=== PATIENT | female | born 1985 | race American Indian/Alaskan Native ===

== ENCOUNTER 2017-03-31 16:04 | Inpatient (IN) | payer OTHER ==
[2017-03-31] MEDS ORDERED: LACTATED RINGERS 1,000 ML ONE (16:27)
[2017-03-31 17:52] LABS: Bilirubin,Urine NEG (Negative); Blood,Urine MOD (Negative); Ketones,Urine 80 mg/dL (Negative); Leukocyte Esterase,Urine NEG (Negative); Mucus,Urine 3+ /HPF; Nitrite,Urine NEG (Negative); Urobilinogen,Urine < 2.0 mg/dL (<2.0)
[2017-03-31] MEDS ORDERED: LACTATED RINGERS 500 ML IV ONE ×2 (18:00→19:30)
[2017-03-31] MEDS ORDERED: BRETHINE SUB-Q ONE (18:24)
[2017-03-31] MEDS ORDERED: MAGNESIUM SULFATE 4GM/100ML 4 GM/100 ML BAG IV ONE (19:30)
[2017-03-31] MEDS ORDERED: STADOL IV PRN (19:39)
[2017-03-31] MEDS: MAGNESIUM SULFATE 40GM/1000ML 40 GM/1,000 ML BAG IV SCH (20:21)
--- NOTE | 2017-03-31 20:24 | Ultrasound Report ---
FINAL REPORT PROCEDURE: US OB \T\gt; = 14 WEEKS FETUS TECHNIQUE: Real-time limited sonographic examination was performed for evaluation of size, position, heartbeat, fluid volume for each fetus with image documentation (1 or more fetuses). CPT 70599 HISTORY: labor; COMPARISON: No prior studies are available for comparison. FINDINGS: Cervix is not diagnostically visualized via transabdominal or translabial technique. FETUS IUP: Single living intrauterine . Position: Breech. Placental position: Posterior and grade 0, without previa . Amniotic fluid volume: Not measured but subjectively within normal limits Heart rate and rhythm: 143 BPM, Regular . anatomic survey: Fluid containing stomach, four-chamber view of the heart, brain, three-vessel cord, limited views of the spine, and kidneys are visualized and appear unremarkable. MEASUREMENTS BPD: 5.3 centimeters, 22 weeks 1 day. HC: 22.6 centimeters, 24 weeks 4 days. AC: 19.3 centimeters, 24 weeks 0 days. FL: 4.4 centimeters, 24 weeks 2 days. Mean Gestational Age (composite criteria): 23 weeks 5 days. Ratio biometry: Low cephalic index, 70.3. Estimated Weight: 657 grams. Estimated Due Date (earliest scan): 07/23/2017. Rounded uterine fibroids are seen posteriorly, which measure up to 7.6 centimeters IMPRESSION: 1. Single living intrauterine gestation at approximately 23 weeks 5 days. 2. EDC by US 07/23/2017. Other findings as above.
[2017-03-31] MEDS: CELESTONE SOLUSPAN IM SCH (20:38)
[2017-03-31 21:00] LABS: Basophils % (Auto) 0.1 % (0.0-1.8); Hematocrit 37.9 % (30.3-42.9); Hemoglobin 12.3 gm/dl (10.1-14.3); Mean Corpuscular HGB Conc 33 % (30-34); Platelet Count 223 K/mm3 (140-440); Red Blood Count 5.45 M/mm3 (3.65-5.03); Red Cell Distribution Width 14.5 % (13.2-15.2); White Blood Count 10.8 K/mm3 (4.5-11.0)
[2017-03-31 21:04] LABS: Mean Corpuscular Hemoglobin 23 pg (28-32); Mean Corpuscular Volume 70 fl (79-97)
--- NOTE | 2017-03-31 23:31 | History and Physical Report ---
History of Present Illness Date of examination: 03/31/17 Date of admission: 03/31/17 21:31 Chief complaint: I'm bleeding History of present illness: patient is a 32 year old who presents at 24.5 weeks gestation with c/o bleeding and contractions. An ultrasound was ordered which could not identify any cervical length. Vaginal exam revealed her to be 1 cm dilated with 90% effacement. Past History Past Medical History: no pertinent history Past Surgical History: no surgical history Social history: - Obstetrical History Expected Date of Delivery: 07/16/17 Actual Gestation: 24 Week(s) 5 Day(s) : 2 Number of Living Children: 0 Medications and Allergies Allergies Allergy/AdvReac Type Severity Reaction Status Date / Time No Known Allergies Allergy Unverified 03/31/17 17:07 Active Meds: Active Medications Betamethasone Acet/Betameth SodPhos (Celestone Soluspan) 12 mg IM Q24HR YAJAIRA Last Admin: 03/31/17 20:38 Dose: 12 mg Butorphanol Tartrate (Stadol) 1 mg IV Q2H PRN PRN Reason: Labor Pain Magnesium Sulfate (Magnesium Sulfate 40gm/1000ml) 40 gm in 1,000 mls @ 50 mls/ hr IV DIRECT YAJAIRA PRN Reason: 2 GM/HR Last Admin: 03/31/17 20:21 Dose: 2 gm/hr, 50 mls/hr Multivitamins/Iron/Calcium ( Vitamin) 1 each PO QDAY YAJAIRA Zolpidem Tartrate (Ambien) 5 mg PO QHS PRN PRN Reason: Sleep Review of Systems All systems: negative Gastrointestinal: abdominal pain Genitourinary: vaginal bleeding, contractions - Vital Signs Vital signs: Vital Signs Temp Pulse Resp BP 98.8 F 94 H 20 143/96 03/31/17 16:11 03/31/17 16:11 03/31/17 16:11 03/31/17 16:11 Temp Pulse Resp BP Pulse Ox 98.8 F 93 H 22 96/59 97 03/31/17 20:17 03/31/17 23:18 03/31/17 20:17 03/31/17 22:42 03/31/17 23:18 - Physical Exam Breasts: Cardiovascular: Regular rate, Normal S1, Normal S2 Lungs: Positive: Clear to auscultation, Normal air movement Abdomen: Positive: normal appearance, soft, normal bowel sounds. Negative: distention, tenderness Vulva: both: normal Vagina: Positive: normal moisture. Negative: discharge Cervix: Negative: lesion, discharge Uterus: Positive: normal size, normal contour Adnexa: both: normal Anus/Rectum: Positive: normal perianal skin, heme negative. Negative: rectal mass, hemorrhoids Extremities: Deep Tendon Reflex Grade: Normal +2 - Obstetrical FHR: auscultation normal Cervical Dilatation: 1 Cervical Effacement Percentage: 90 station: -1 Uterine Contraction Intensity: Moderate Results Result Diagrams: 03/31/17 20:28 Abnormal lab results 03/31/17 Range/Units 20:28 RBC 5.45 H (3.65-5.03) M/mm3 MCV 70 L (79-97) fl MCH 23 L (28-32) pg [place] % (Auto) 8.1 H (0.0-7.3) % [place] # 0.9 H (0.0-0.8) K/mm3 Seg Neutrophils % 73.9 H (40.0-70.0) % Seg Neutrophils # 8.0 H (1.8-7.7) K/mm3 All other labs normal. Assessment and Plan Patient here with advanced cervical change at 24.5 weeks. Will admit for labor protocol. Patient to receive steroids. Will start on magnesium for neuroprotection. Complete bedrest. Consult NICU. Expectant management.
[2017-04-01] MEDS: AMBIEN PO PRN (02:44)
[2017-04-01 08:37] LABS: HIVR-1/2 Ab Non React (Non React)
[2017-04-01 08:38] LABS: HIV-1 Antigen p24 Non React (Non React)
[2017-04-01] MEDS ORDERED: LACTATED RINGERS 1,000 ML ONE (12:52)
[2017-04-01] MEDS: LACTATED RINGERS 1,000 ML IV SCH (13:38)
[2017-04-01] MEDS: PRENATAL VITAMIN PO SCH (15:19)
[2017-04-01] MEDS: MAGNESIUM SULFATE 40GM/1000ML 40 GM/1,000 ML BAG IV SCH (16:02)
--- NOTE | 2017-04-01 16:19 | Progress Note ---
Assessment and Plan IUP at 24+ weeks here with advanced cervical change and labor. Patient is stable at this time. Continue current management and routine care. Subjective - Subjective Date of service: 04/01/17 Interval history: patient is a 32 year old who presents at 24.5 weeks gestation with c/o bleeding and contractions. An ultrasound was ordered which could not identify any cervical length. Vaginal exam revealed her to be 1 cm dilated with 90% effacement. Patient reports: new complaints Objective - Vital Signs Vital Signs: Vital Signs - 12hr 04/01/17 04/01/17 04/01/17 04:18 04:23 04:28 Temperature Pulse Rate 103 H 110 H 103 H Respiratory Rate Blood Pressure O2 Sat by Pulse 99 98 96 Oximetry 04/01/17 04/01/17 04/01/17 04:48 04:49 04:53 Temperature Pulse Rate 95 H 93 H 91 H Respiratory Rate Blood Pressure 103/68 O2 Sat by Pulse 99 100 Oximetry 04/01/17 04/01/17 04/01/17 04:55 04:58 05:03 Temperature 98.0 F Pulse Rate 87 94 H Respiratory 16 Rate Blood Pressure O2 Sat by Pulse 99 100 Oximetry 04/01/17 04/01/17 04/01/17 05:08 05:13 05:18 Temperature Pulse Rate 92 H 95 H 86 Respiratory Rate Blood Pressure O2 Sat by Pulse 99 99 98 Oximetry 04/01/17 04/01/17 04/01/17 05:23 05:28 05:33 Temperature Pulse Rate 88 87 86 Respiratory Rate Blood Pressure O2 Sat by Pulse 98 98 98 Oximetry 04/01/17 04/01/17 04/01/17 05:38 05:42 05:43 Temperature Pulse Rate 94 H 104 H 104 H Respiratory Rate Blood Pressure 116/85 O2 Sat by Pulse 98 59 L 99 Oximetry 04/01/17 04/01/17 04/01/17 06:20 06:25 06:30 Temperature Pulse Rate 85 88 85 Respiratory Rate Blood Pressure O2 Sat by Pulse 99 99 99 Oximetry 04/01/17 04/01/17 04/01/17 06:35 06:40 06:41 Temperature Pulse Rate 87 83 78 Respiratory Rate Blood Pressure 113/73 O2 Sat by Pulse 98 99 Oximetry 04/01/17 04/01/17 04/01/17 06:45 06:50 06:55 Temperature Pulse Rate 84 83 82 Respiratory Rate Blood Pressure O2 Sat by Pulse 98 98 98 Oximetry 04/01/17 04/01/17 04/01/17 07:00 07:05 07:10 Temperature Pulse Rate 83 84 83 Respiratory Rate Blood Pressure O2 Sat by Pulse 98 98 98 Oximetry 04/01/17 04/01/17 04/01/17 07:15 07:20 07:25 Temperature Pulse Rate 82 81 83 Respiratory Rate Blood Pressure O2 Sat by Pulse 99 98 98 Oximetry 04/01/17 04/01/17 04/01/17 07:30 07:33 07:35 Temperature Pulse Rate 80 84 82 Respiratory Rate Blood Pressure 109/74 O2 Sat by Pulse 99 98 Oximetry 04/01/17 04/01/17 04/01/17 07:40 07:45 07:50 Temperature Pulse Rate 82 84 82 Respiratory Rate Blood Pressure O2 Sat by Pulse 97 98 98 Oximetry 04/01/17 04/01/17 04/01/17 07:55 08:00 08:05 Temperature 98.1 F Pulse Rate 87 88 88 Respiratory 16 Rate Blood Pressure O2 Sat by Pulse 98 97 98 Oximetry 04/01/17 04/01/17 04/01/17 08:10 08:15 08:20 Temperature Pulse Rate 88 86 85 Respiratory Rate Blood Pressure O2 Sat by Pulse 99 99 99 Oximetry 04/01/17 04/01/17 04/01/17 08:25 08:30 08:33 Temperature Pulse Rate 86 88 85 Respiratory Rate Blood Pressure 89/56 O2 Sat by Pulse 99 99 Oximetry 04/01/17 04/01/17 04/01/17 08:35 08:40 08:45 Temperature Pulse Rate 82 86 80 Respiratory Rate Blood Pressure O2 Sat by Pulse 99 98 99 Oximetry 04/01/17 04/01/17 04/01/17 08:50 08:55 09:00 Temperature Pulse Rate 80 81 78 Respiratory Rate Blood Pressure O2 Sat by Pulse 99 99 99 Oximetry 04/01/17 04/01/17 04/01/17 09:05 09:10 09:15 Temperature Pulse Rate 78 79 81 Respiratory Rate Blood Pressure O2 Sat by Pulse 99 98 99 Oximetry 04/01/17 04/01/17 04/01/17 09:18 09:20 09:25 Temperature Pulse Rate 85 85 84 Respiratory Rate Blood Pressure 100/62 O2 Sat by Pulse 99 99 Oximetry 04/01/17 04/01/17 04/01/17 09:30 09:33 09:35 Temperature Pulse Rate 85 83 80 Respiratory Rate Blood Pressure 99/60 O2 Sat by Pulse 99 99 Oximetry 04/01/17 04/01/17 04/01/17 09:40 09:45 09:50 Temperature Pulse Rate 79 79 84 Respiratory Rate Blood Pressure O2 Sat by Pulse 99 99 99 Oximetry 04/01/17 04/01/17 04/01/17 09:55 10:00 10:02 Temperature Pulse Rate 92 H 86 86 Respiratory Rate Blood Pressure 89/54 O2 Sat by Pulse 99 99 Oximetry 04/01/17 04/01/17 04/01/17 10:05 10:10 10:15 Temperature Pulse Rate 89 89 92 H Respiratory Rate Blood Pressure O2 Sat by Pulse 100 100 99 Oximetry 04/01/17 04/01/17 04/01/17 10:20 10:25 10:30 Temperature Pulse Rate 103 H 100 H 96 H Respiratory Rate Blood Pressure O2 Sat by Pulse 99 99 100 Oximetry 04/01/17 04/01/17 04/01/17 10:35 10:40 10:45 Temperature Pulse Rate 96 H 101 H 102 H Respiratory Rate Blood Pressure O2 Sat by Pulse 98 97 98 Oximetry 04/01/17 04/01/17 04/01/17 10:50 10:55 11:00 Temperature Pulse Rate 114 H 110 H 110 H Respiratory Rate Blood Pressure O2 Sat by Pulse 97 98 98 Oximetry 04/01/17 04/01/17 04/01/17 11:02 11:05 11:10 Temperature Pulse Rate 93 H 94 H 94 H Respiratory Rate Blood Pressure 101/63 O2 Sat by Pulse 98 99 Oximetry 04/01/17 04/01/17 04/01/17 11:15 11:20 11:25 Temperature Pulse Rate 98 H 94 H 91 H Respiratory Rate Blood Pressure O2 Sat by Pulse 98 97 97 Oximetry 04/01/17 04/01/17 04/01/17 11:30 11:35 11:40 Temperature Pulse Rate 87 93 H 94 H Respiratory Rate Blood Pressure O2 Sat by Pulse 96 98 96 Oximetry 04/01/17 04/01/17 04/01/17 11:45 11:50 11:55 Temperature Pulse Rate 88 86 84 Respiratory Rate Blood Pressure O2 Sat by Pulse 97 96 96 Oximetry 05/13/17 05/13/17 05/13/17 12:00 12:04 12:05 Temperature 98.3 F Pulse Rate 93 H 93 H 94 H Respiratory 18 Rate Blood Pressure 107/67 O2 Sat by Pulse 98 100 Oximetry 04/01/17 04/01/17 04/01/17 12:10 12:15 12:20 Temperature Pulse Rate 100 H 98 H 97 H Respiratory Rate Blood Pressure O2 Sat by Pulse 98 98 98 Oximetry 04/01/17 04/01/17 04/01/17 12:25 12:30 12:35 Temperature Pulse Rate 98 H 102 H 96 H Respiratory Rate Blood Pressure O2 Sat by Pulse 98 99 99 Oximetry 04/01/17 04/01/17 04/01/17 12:40 12:45 12:50 Temperature Pulse Rate 96 H 104 H 93 H Respiratory Rate Blood Pressure O2 Sat by Pulse 99 99 97 Oximetry 04/01/17 04/01/17 04/01/17 12:55 13:00 13:02 Temperature Pulse Rate 89 89 88 Respiratory Rate Blood Pressure 92/58 O2 Sat by Pulse 97 96 Oximetry 04/01/17 04/01/17 04/01/17 13:05 13:10 13:15 Temperature Pulse Rate 95 H 88 89 Respiratory Rate Blood Pressure O2 Sat by Pulse 97 97 98 Oximetry 04/01/17 04/01/17 04/01/17 13:20 13:25 13:30 Temperature Pulse Rate 89 88 83 Respiratory Rate Blood Pressure O2 Sat by Pulse 98 98 97 Oximetry 04/01/17 04/01/17 04/01/17 13:35 13:40 13:45 Temperature Pulse Rate 94 H 91 H 92 H Respiratory Rate Blood Pressure O2 Sat by Pulse 98 98 97 Oximetry 04/01/17 04/01/17 04/01/17 13:50 13:55 14:00 Temperature Pulse Rate 88 87 85 Respiratory Rate Blood Pressure 93/60 O2 Sat by Pulse 97 97 96 Oximetry 04/01/17 04/01/17 04/01/17 14:03 14:05 14:10 Temperature Pulse Rate 86 84 89 Respiratory Rate Blood Pressure 104/74 O2 Sat by Pulse 100 100 Oximetry 04/01/17 04/01/17 04/01/17 14:15 14:20 14:25 Temperature Pulse Rate 87 91 H 88 Respiratory Rate Blood Pressure O2 Sat by Pulse 99 100 100 Oximetry 04/01/17 04/01/17 04/01/17 14:30 14:35 14:40 Temperature Pulse Rate 86 91 H 88 Respiratory Rate Blood Pressure O2 Sat by Pulse 100 100 100 Oximetry 04/01/17 04/01/17 04/01/17 14:45 14:50 14:55 Temperature Pulse Rate 87 85 85 Respiratory Rate Blood Pressure O2 Sat by Pulse 100 100 100 Oximetry 04/01/17 04/01/17 04/01/17 15:00 15:02 15:05 Temperature Pulse Rate 85 89 93 H Respiratory Rate Blood Pressure 101/69 O2 Sat by Pulse 100 100 Oximetry 04/01/17 04/01/17 04/01/17 15:50 15:55 16:00 Temperature Pulse Rate 91 H 98 H 95 H Respiratory Rate Blood Pressure O2 Sat by Pulse 100 99 100 Oximetry 04/01/17 04/01/17 04/01/17 16:01 16:05 16:10 Temperature Pulse Rate 90 91 H 99 H Respiratory Rate Blood Pressure 108/67 O2 Sat by Pulse 98 98 Oximetry - Exam Breasts: deferred Cardiovascular: Regular rate, Normal S1, Normal S2 Lungs: Clear to auscultation, Normal air movement Abdomen: Present: normal appearance, soft, normal bowel sounds Uterus: Present: normal FHR: auscultation normal Cervical Dilatation: 1 Cervical Effacement Percentage: 90 station: -2 Uterine Contraction Pattern: Absent Deep Tendon Reflex Grade: Normal +2 - Labs Labs: Abnormal Labs 03/31/17 20:28 RBC 5.45 H MCV 70 L MCH 23 L [place] % (Auto) 8.1 H [place] # 0.9 H Seg Neutrophils % 73.9 H Seg Neutrophils # 8.0 H Laboratory Results - last 24 hr 03/31/17 03/31/17 03/31/17 17:17 20:25 20:28 WBC 10.8 RBC 5.45 H Hgb 12.3 Hct 37.9 MCV 70 L MCH 23 L MCHC 33 RDW 14.5 Plt Count 223 Lymph % (Auto) 16.9 [place] % (Auto) 8.1 H Eos % (Auto) 1.0 Baso % (Auto) 0.1 Lymph # 1.8 [place] # 0.9 H Eos # 0.1 Baso # 0.0 Seg Neutrophils % 73.9 H Seg Neutrophils # 8.0 H Urine Color Yellow Urine Turbidity Clear Urine pH 5.0 Ur Specific [place] 1.027 Urine Protein 30 mg/dl Urine Glucose (UA) Neg Urine Ketones 80 Urine Blood Mod Urine Nitrite Neg Urine Bilirubin Neg Urine Urobilinogen < 2.0 Ur Leukocyte Esterase Neg Urine WBC (Auto) 1.0 Urine RBC (Auto) 2.0 U Epithel Cells (Auto) 2.0 Urine Mucus 3+ Hep Bs Antigen HIV 1&2 Antibody Rapid HIV P24 Antigen Rubella IgG Antibody Blood Type O POSITIVE Antibody Screen TNR TORSTEN Antibody Screen Negative 04/01/17 04/01/17 04/01/17 06:57 06:57 06:57 WBC RBC Hgb Hct MCV MCH MCHC RDW Plt Count Lymph % (Auto) [place] % (Auto) Eos % (Auto) Baso % (Auto) Lymph # [place] # Eos # Baso # Seg Neutrophils % Seg Neutrophils # Urine Color Urine Turbidity Urine pH Ur Specific [place] Urine Protein Urine Glucose (UA) Urine Ketones Urine Blood Urine Nitrite Urine Bilirubin Urine Urobilinogen Ur Leukocyte Esterase Urine WBC (Auto) Urine RBC (Auto) U Epithel Cells (Auto) Urine Mucus Hep Bs Antigen Non-reactive HIV 1&2 Antibody Rapid Non react HIV P24 Antigen Non react Rubella IgG Antibody Immune Blood Type Antibody Screen TORSTEN Antibody Screen
[2017-04-01] MEDS: CELESTONE SOLUSPAN IM SCH (20:56)
[2017-04-02] MEDS: LACTATED RINGERS 1,000 ML IV SCH (02:34)
[2017-04-02] MEDS: PRENATAL VITAMIN PO SCH (10:33)
--- NOTE | 2017-04-02 11:57 | Progress Note ---
Assessment and Plan IUP at 24.3 weeks with labor and cervical change.Patient denies any contractions. She has received both steroid injections. Will D/C mag this pm at 48 hours. Continue present management. Subjective - Subjective Date of service: 04/02/17 Interval history: patient is a 32 year old who presents at 24.5 weeks gestation with c/o bleeding and contractions. An ultrasound was ordered which could not identify any cervical length. Vaginal exam revealed her to be 1 cm dilated with 90% effacement. Patient reports: new complaints, other (no contractions) Objective - Vital Signs Vital Signs: Vital Signs - 12hr 04/02/17 04/02/17 04/02/17 00:00 00:01 00:05 Temperature 97.6 F Pulse Rate 85 83 82 Respiratory 18 Rate Blood Pressure 89/52 O2 Sat by Pulse 98 98 Oximetry 04/02/17 04/02/17 04/02/17 00:10 00:15 00:20 Temperature Pulse Rate 81 78 82 Respiratory Rate Blood Pressure O2 Sat by Pulse 98 99 98 Oximetry 04/02/17 04/02/17 04/02/17 00:25 00:30 00:35 Temperature Pulse Rate 83 81 84 Respiratory Rate Blood Pressure O2 Sat by Pulse 98 98 98 Oximetry 04/02/17 04/02/17 04/02/17 00:40 00:45 00:50 Temperature Pulse Rate 87 86 85 Respiratory Rate Blood Pressure O2 Sat by Pulse 98 97 97 Oximetry 04/02/17 04/02/17 04/02/17 00:55 01:00 01:01 Temperature Pulse Rate 81 80 78 Respiratory Rate Blood Pressure 100/61 O2 Sat by Pulse 96 96 Oximetry 04/02/17 04/02/17 04/02/17 01:05 01:10 01:15 Temperature Pulse Rate 80 78 77 Respiratory Rate Blood Pressure O2 Sat by Pulse 97 97 97 Oximetry 04/02/17 04/02/17 04/02/17 01:20 01:25 01:30 Temperature Pulse Rate 76 77 72 Respiratory Rate Blood Pressure O2 Sat by Pulse 97 97 97 Oximetry 04/02/17 04/02/17 04/02/17 01:35 01:40 01:45 Temperature Pulse Rate 72 69 71 Respiratory Rate Blood Pressure O2 Sat by Pulse 97 98 97 Oximetry 04/02/17 04/02/17 04/02/17 01:50 01:55 02:00 Temperature Pulse Rate 70 70 70 Respiratory Rate Blood Pressure O2 Sat by Pulse 97 97 97 Oximetry 04/02/17 04/02/17 04/02/17 02:01 02:05 02:10 Temperature Pulse Rate 69 81 75 Respiratory Rate Blood Pressure 82/52 O2 Sat by Pulse 98 98 Oximetry 04/02/17 04/02/17 04/02/17 02:15 02:20 02:25 Temperature 98.4 F Pulse Rate 77 78 78 Respiratory 18 Rate Blood Pressure O2 Sat by Pulse 97 97 97 Oximetry 04/02/17 04/02/17 04/02/17 02:30 02:35 02:40 Temperature Pulse Rate 77 72 74 Respiratory Rate Blood Pressure O2 Sat by Pulse 97 96 97 Oximetry 04/02/17 04/02/17 04/02/17 02:45 02:50 02:55 Temperature Pulse Rate 74 76 69 Respiratory Rate Blood Pressure O2 Sat by Pulse 96 98 99 Oximetry 04/02/17 04/02/17 04/02/17 03:00 03:01 03:05 Temperature Pulse Rate 72 69 70 Respiratory Rate Blood Pressure 83/51 O2 Sat by Pulse 99 99 Oximetry 04/02/17 04/02/17 04/02/17 03:10 03:15 03:20 Temperature Pulse Rate 69 78 80 Respiratory Rate Blood Pressure O2 Sat by Pulse 99 99 96 Oximetry 04/02/17 04/02/17 04/02/17 03:25 03:30 03:35 Temperature Pulse Rate 76 75 74 Respiratory Rate Blood Pressure O2 Sat by Pulse 96 96 96 Oximetry 04/02/17 04/02/17 04/02/17 03:40 03:45 03:50 Temperature Pulse Rate 71 71 71 Respiratory Rate Blood Pressure O2 Sat by Pulse 95 96 96 Oximetry 04/02/17 04/02/17 04/02/17 03:55 04:00 04:01 Temperature Pulse Rate 71 70 73 Respiratory Rate Blood Pressure 106/66 O2 Sat by Pulse 96 96 Oximetry 04/02/17 04/02/17 04/02/17 04:05 04:10 04:15 Temperature Pulse Rate 70 73 72 Respiratory Rate Blood Pressure O2 Sat by Pulse 96 98 98 Oximetry 04/02/17 04/02/17 04/02/17 04:20 04:25 04:30 Temperature Pulse Rate 72 72 71 Respiratory Rate Blood Pressure O2 Sat by Pulse 98 98 98 Oximetry 04/02/17 04/02/17 04/02/17 04:35 04:40 04:45 Temperature Pulse Rate 72 73 85 Respiratory Rate Blood Pressure O2 Sat by Pulse 98 98 99 Oximetry 04/02/17 04/02/17 04/02/17 04:50 04:55 05:00 Temperature 97.7 F Pulse Rate 69 76 74 Respiratory 18 Rate Blood Pressure O2 Sat by Pulse 96 96 94 Oximetry 04/02/17 04/02/17 04/02/17 05:01 05:05 05:08 Temperature Pulse Rate 75 73 76 Respiratory Rate Blood Pressure 99/55 O2 Sat by Pulse 97 93 Oximetry 04/02/17 04/02/17 04/02/17 05:10 05:15 05:20 Temperature Pulse Rate 76 72 78 Respiratory Rate Blood Pressure O2 Sat by Pulse 96 97 96 Oximetry 04/02/17 04/02/17 04/02/17 05:21 05:25 05:30 Temperature Pulse Rate 79 72 70 Respiratory Rate Blood Pressure O2 Sat by Pulse 94 96 98 Oximetry 04/02/17 04/02/17 04/02/17 05:35 05:40 05:45 Temperature Pulse Rate 72 68 68 Respiratory Rate Blood Pressure O2 Sat by Pulse 98 98 98 Oximetry 04/02/17 04/02/17 04/02/17 05:50 05:55 06:00 Temperature Pulse Rate 66 67 66 Respiratory Rate Blood Pressure O2 Sat by Pulse 98 97 98 Oximetry 04/02/17 04/02/17 04/02/17 06:01 06:05 06:10 Temperature Pulse Rate 65 66 67 Respiratory Rate Blood Pressure 99/54 O2 Sat by Pulse 98 97 Oximetry 04/02/17 04/02/17 04/02/17 06:15 06:20 06:25 Temperature Pulse Rate 65 75 75 Respiratory Rate Blood Pressure O2 Sat by Pulse 98 98 97 Oximetry 04/02/17 04/02/17 04/02/17 06:30 06:35 06:40 Temperature Pulse Rate 71 73 76 Respiratory Rate Blood Pressure O2 Sat by Pulse 100 100 100 Oximetry 04/02/17 04/02/17 04/02/17 06:45 06:50 06:55 Temperature Pulse Rate 74 70 70 Respiratory Rate Blood Pressure O2 Sat by Pulse 97 97 97 Oximetry 05/04/02/17 04/02/17 07:00 07:02 07:05 Temperature Pulse Rate 73 69 74 Respiratory Rate Blood Pressure 97/60 O2 Sat by Pulse 97 97 Oximetry 04/02/17 04/02/17 04/02/17 07:10 07:15 07:20 Temperature Pulse Rate 74 88 75 Respiratory Rate Blood Pressure O2 Sat by Pulse 96 98 98 Oximetry 04/02/17 04/02/17 04/02/17 07:25 07:30 07:35 Temperature Pulse Rate 75 72 74 Respiratory Rate Blood Pressure O2 Sat by Pulse 96 95 96 Oximetry 04/02/17 04/02/17 04/02/17 07:40 07:45 07:50 Temperature Pulse Rate 69 71 68 Respiratory Rate Blood Pressure O2 Sat by Pulse 96 96 96 Oximetry 04/02/17 04/02/17 04/02/17 07:55 08:00 08:01 Temperature Pulse Rate 68 70 72 Respiratory Rate Blood Pressure 105/65 O2 Sat by Pulse 96 96 Oximetry 04/02/17 04/02/17 04/02/17 08:05 08:10 08:15 Temperature Pulse Rate 70 78 78 Respiratory Rate Blood Pressure O2 Sat by Pulse 96 96 97 Oximetry 04/02/17 04/02/17 04/02/17 08:20 08:25 08:30 Temperature Pulse Rate 81 84 82 Respiratory Rate Blood Pressure O2 Sat by Pulse 97 99 97 Oximetry 04/02/17 04/02/17 04/02/17 08:35 08:40 08:45 Temperature Pulse Rate 74 87 75 Respiratory Rate Blood Pressure O2 Sat by Pulse 98 96 98 Oximetry 04/02/17 04/02/17 04/02/17 08:50 08:55 09:00 Temperature Pulse Rate 74 78 73 Respiratory Rate Blood Pressure O2 Sat by Pulse 98 98 98 Oximetry 04/02/17 04/02/17 04/02/17 09:01 09:05 09:10 Temperature Pulse Rate 74 84 80 Respiratory Rate Blood Pressure 110/71 O2 Sat by Pulse 98 94 Oximetry 04/02/17 04/02/17 04/02/17 09:15 09:20 09:25 Temperature Pulse Rate 89 94 H 81 Respiratory Rate Blood Pressure O2 Sat by Pulse 100 99 99 Oximetry 04/02/17 04/02/17 04/02/17 09:30 09:35 09:40 Temperature Pulse Rate 87 95 H 94 H Respiratory Rate Blood Pressure O2 Sat by Pulse 99 99 99 Oximetry 04/02/17 04/02/17 04/02/17 09:45 09:50 09:55 Temperature Pulse Rate 94 H 104 H 89 Respiratory Rate Blood Pressure O2 Sat by Pulse 100 86 99 Oximetry 04/02/17 04/02/17 04/02/17 10:00 10:01 10:05 Temperature Pulse Rate 86 83 81 Respiratory Rate Blood Pressure 100/61 O2 Sat by Pulse 99 99 Oximetry 04/02/17 04/02/17 04/02/17 10:10 10:15 10:20 Temperature Pulse Rate 79 78 80 Respiratory Rate Blood Pressure O2 Sat by Pulse 98 99 98 Oximetry 04/02/17 04/02/17 04/02/17 10:25 10:30 10:35 Temperature 98.1 F Pulse Rate 80 76 83 Respiratory 16 Rate Blood Pressure O2 Sat by Pulse 98 97 97 Oximetry 04/02/17 04/02/17 04/02/17 10:40 10:45 10:50 Temperature Pulse Rate 75 73 70 Respiratory Rate Blood Pressure O2 Sat by Pulse 97 97 97 Oximetry 04/02/17 04/02/17 04/02/17 10:55 11:00 11:02 Temperature Pulse Rate 71 72 71 Respiratory Rate Blood Pressure 97/52 O2 Sat by Pulse 96 96 Oximetry 04/02/17 04/02/17 04/02/17 11:05 11:10 11:15 Temperature Pulse Rate 72 69 73 Respiratory Rate Blood Pressure O2 Sat by Pulse 96 98 97 Oximetry 04/02/17 04/02/17 04/02/17 11:20 11:25 11:30 Temperature Pulse Rate 71 71 70 Respiratory Rate Blood Pressure O2 Sat by Pulse 97 97 98 Oximetry 04/02/17 04/02/17 04/02/17 11:35 11:40 11:45 Temperature Pulse Rate 68 67 65 Respiratory Rate Blood Pressure O2 Sat by Pulse 98 99 99 Oximetry 04/02/17 11:50 Temperature Pulse Rate 69 Respiratory Rate Blood Pressure O2 Sat by Pulse 99 Oximetry - Exam Cardiovascular: Regular rate, Normal S1, Normal S2 Lungs: Clear to auscultation, Normal air movement Abdomen: Present: normal appearance, soft, normal bowel sounds Vulva: both: normal Uterus: Present: normal, firm FHR: category 2 - Labs Labs: Abnormal Labs 03/31/17 20:28 RBC 5.45 H MCV 70 L MCH 23 L [place] % (Auto) 8.1 H [place] # 0.9 H Seg Neutrophils % 73.9 H Seg Neutrophils # 8.0 H Laboratory Results - last 24 hr 04/01/17 06:57 RPR Nonreactive
[2017-04-03] MEDS: LACTATED RINGERS 1,000 ML IV SCH ×4 (02:03→22:47)
--- NOTE | 2017-04-03 07:18 | Admit Criteria Form ---
Admission Criteria Documentation: LABOR, THREATENED Clinical Indications for Admission to Inpatient Care (Place 'X' for any and all applicable criteria): Admission is indicated for ANY ONE of the following 1,2,3: [ ]I. Chorioamnionitis [ ]II. Significant vaginal bleeding or any vaginal bleeding with known placental previa or vasa previa 5,8 [ ]III. Serious maternal, infection or comorbidity (eg, pyelonephritis, pneumonia) as cause [ ]IV. Delivery [ ]V. distress or demise [ ]. labor and positive fibronectin(fFN) assay (9) [ ]VII. Condition requiring premature delivery (eg, premature rupture of membranes) 4,5 [X ]VIII. Inpatient admission required rather than observation care (Also use Labor, Threatened: Observation Care Criteria as appropriate) because of ANY ONE of the following: [X ]a) Continued monitoring that requires inpatient care [ ]b) Tocolytic therapy needed that requires inpatient care [ ]c) Complications of tocolytic treatment (eg, pulmonary edema, hypotension) that are severe or persistent (9) Extended stay beyond goal length of stay may be needed for (1)(2) [ ]a) Significant infection (eg, chorioamnionitis)(29) [ ]b) Continued uterine contractions [ ]c) demise [ ]d) Continued vaginal bleeding or placental abnormality [ ]e) Complications of tocolytic treatment (eg, pulmonary edema, hypotension)( 15) [ ]f) Multiple gestation(33) [ ]g) Other condition (eg, severe maternal disease, premature delivery) requiring continued inpatient care The original [facility] content created by [employer] has been revised. The portions of the content which have been revised are identified through the use of italic text or in bold, and [facility] has neither reviewed nor approved the modified material. All other unmodified content is copyright [facility] [employer] [facility]. Please see references footnoted in the original [facility] [email or web address] edition 2016 Admission Criteria Met: Yes
--- NOTE | 2017-04-03 08:24 | Progress Note ---
Assessment and Plan A: IUP at 25w1d s/p 2 doses of betamethasone and magnesium for neuroprotection. s/p NICU consult labor- currently arrested at /-2 Uterine Fibroids P: Continue observation and bedrest MFM consult Closely monitor maternal and status. Subjective - Subjective Date of service: 04/03/17 Principal diagnosis: IUP at 25 wks, Labor, Uterine Fibroids Interval history: Pt anxious. Otherwise no obstetric complaints. Patient reports: new complaints, movement normal, other (no contractions) , no loss of fluid, no vaginal bleeding, no contractions Objective - Vital Signs Vital Signs: Vital Signs - 12hr 04/02/17 04/02/17 04/02/17 20:27 20:32 20:37 Temperature Pulse Rate 90 79 85 Pulse Rate [ Left From Monitor] Respiratory Rate Blood Pressure Blood Pressure [Right Arm] O2 Sat by Pulse 99 99 98 Oximetry 04/02/17 04/02/17 04/02/17 20:42 20:47 20:52 Temperature Pulse Rate 88 83 93 H Pulse Rate [ Left From Monitor] Respiratory Rate Blood Pressure Blood Pressure [Right Arm] O2 Sat by Pulse 97 98 98 Oximetry 04/02/17 04/02/17 04/02/17 20:57 21:01 21:02 Temperature Pulse Rate 83 90 87 Pulse Rate [ Left From Monitor] Respiratory Rate Blood Pressure 102/79 Blood Pressure [Right Arm] O2 Sat by Pulse 98 98 Oximetry 04/02/17 04/02/17 04/02/17 21:07 21:12 21:17 Temperature Pulse Rate 80 79 79 Pulse Rate [ Left From Monitor] Respiratory Rate Blood Pressure Blood Pressure [Right Arm] O2 Sat by Pulse 97 97 96 Oximetry 04/02/17 04/02/17 04/02/17 21:22 21:27 21:32 Temperature Pulse Rate 77 83 78 Pulse Rate [ Left From Monitor] Respiratory Rate Blood Pressure Blood Pressure [Right Arm] O2 Sat by Pulse 96 97 97 Oximetry 04/02/17 04/02/17 04/02/17 21:37 21:42 21:47 Temperature Pulse Rate 78 77 77 Pulse Rate [ Left From Monitor] Respiratory Rate Blood Pressure Blood Pressure [Right Arm] O2 Sat by Pulse 96 96 97 Oximetry 04/02/17 04/02/17 04/02/17 21:52 21:57 22:01 Temperature Pulse Rate 76 85 77 Pulse Rate [ Left From Monitor] Respiratory Rate Blood Pressure 90/54 Blood Pressure [Right Arm] O2 Sat by Pulse 97 97 Oximetry 04/02/17 04/02/17 04/02/17 22:02 22:07 22:09 Temperature Pulse Rate 79 86 83 Pulse Rate [ Left From Monitor] Respiratory Rate Blood Pressure Blood Pressure [Right Arm] O2 Sat by Pulse 96 98 92 Oximetry 04/02/17 04/02/17 04/02/17 22:12 22:17 22:22 Temperature Pulse Rate 78 78 80 Pulse Rate [ Left From Monitor] Respiratory Rate Blood Pressure Blood Pressure [Right Arm] O2 Sat by Pulse 97 97 98 Oximetry 04/02/17 04/02/17 04/02/17 22:27 22:32 22:38 Temperature Pulse Rate 76 78 77 Pulse Rate [ Left From Monitor] Respiratory Rate Blood Pressure Blood Pressure [Right Arm] O2 Sat by Pulse 98 98 98 Oximetry 04/02/17 04/02/17 04/02/17 22:43 22:48 22:53 Temperature Pulse Rate 79 80 43 L Pulse Rate [ Left From Monitor] Respiratory Rate Blood Pressure Blood Pressure [Right Arm] O2 Sat by Pulse 96 97 83 L Oximetry 04/02/17 04/02/17 04/02/17 22:58 23:01 23:03 Temperature Pulse Rate 79 79 84 Pulse Rate [ Left From Monitor] Respiratory Rate Blood Pressure 101/56 Blood Pressure [Right Arm] O2 Sat by Pulse 97 97 Oximetry 04/02/17 04/02/17 04/02/17 23:08 23:13 23:18 Temperature Pulse Rate 78 91 H 81 Pulse Rate [ Left From Monitor] Respiratory Rate Blood Pressure Blood Pressure [Right Arm] O2 Sat by Pulse 97 97 97 Oximetry 04/02/17 04/02/17 04/02/17 23:23 23:28 23:33 Temperature Pulse Rate 79 83 77 Pulse Rate [ Left From Monitor] Respiratory Rate Blood Pressure Blood Pressure [Right Arm] O2 Sat by Pulse 98 98 98 Oximetry 04/02/17 04/02/17 04/02/17 23:38 23:43 23:48 Temperature Pulse Rate 79 76 77 Pulse Rate [ Left From Monitor] Respiratory Rate Blood Pressure Blood Pressure [Right Arm] O2 Sat by Pulse 99 98 99 Oximetry 04/02/17 04/02/17 04/03/17 23:53 23:58 00:01 Temperature Pulse Rate 78 79 82 Pulse Rate [ Left From Monitor] Respiratory Rate Blood Pressure 99/64 Blood Pressure [Right Arm] O2 Sat by Pulse 98 97 Oximetry 04/03/17 04/03/17 04/03/17 00:03 00:08 00:13 Temperature Pulse Rate 84 83 75 Pulse Rate [ Left From Monitor] Respiratory Rate Blood Pressure Blood Pressure [Right Arm] O2 Sat by Pulse 97 100 99 Oximetry 04/03/17 04/03/17 04/03/17 00:18 00:23 00:28 Temperature Pulse Rate 83 76 74 Pulse Rate [ Left From Monitor] Respiratory Rate Blood Pressure Blood Pressure [Right Arm] O2 Sat by Pulse 99 99 97 Oximetry 04/03/17 04/03/17 04/03/17 00:33 00:38 00:43 Temperature Pulse Rate 77 80 74 Pulse Rate [ Left From Monitor] Respiratory Rate Blood Pressure Blood Pressure [Right Arm] O2 Sat by Pulse 98 99 98 Oximetry 04/03/17 04/03/17 04/03/17 00:48 00:50 01:01 Temperature Pulse Rate 71 80 65 Pulse Rate [ Left From Monitor] Respiratory Rate Blood Pressure 99/61 Blood Pressure [Right Arm] O2 Sat by Pulse 99 83 L Oximetry 04/03/17 04/03/17 04/03/17 01:19 01:20 01:25 Temperature Pulse Rate 73 65 Pulse Rate [ Left From Monitor] Respiratory Rate Blood Pressure Blood Pressure [Right Arm] O2 Sat by Pulse 84 98 97 Oximetry 04/03/17 04/03/17 04/03/17 01:30 01:35 01:40 Temperature Pulse Rate 62 60 59 L Pulse Rate [ Left From Monitor] Respiratory Rate Blood Pressure Blood Pressure [Right Arm] O2 Sat by Pulse 98 97 96 Oximetry 04/03/17 04/03/17 04/03/17 01:45 01:50 01:55 Temperature Pulse Rate 58 L 58 L 63 Pulse Rate [ Left From Monitor] Respiratory Rate Blood Pressure Blood Pressure [Right Arm] O2 Sat by Pulse 97 97 89 Oximetry 04/03/17 04/03/17 04/03/17 02:00 02:01 02:05 Temperature Pulse Rate 57 L 61 62 Pulse Rate [ Left From Monitor] Respiratory Rate Blood Pressure 111/68 Blood Pressure [Right Arm] O2 Sat by Pulse 100 99 Oximetry 04/03/17 04/03/17 04/03/17 02:10 02:15 02:20 Temperature Pulse Rate 56 L 59 L 60 Pulse Rate [ Left From Monitor] Respiratory Rate Blood Pressure Blood Pressure [Right Arm] O2 Sat by Pulse 99 99 99 Oximetry 04/03/17 04/03/17 04/03/17 02:25 02:30 02:35 Temperature Pulse Rate 59 L 61 58 L Pulse Rate [ Left From Monitor] Respiratory Rate Blood Pressure Blood Pressure [Right Arm] O2 Sat by Pulse 99 99 99 Oximetry 04/03/17 04/03/17 04/03/17 02:40 02:45 02:46 Temperature Pulse Rate 63 69 119 H Pulse Rate [ Left From Monitor] Respiratory Rate Blood Pressure Blood Pressure [Right Arm] O2 Sat by Pulse 98 100 67 L Oximetry 04/03/17 04/03/17 04/03/17 02:50 02:55 03:00 Temperature Pulse Rate 59 L 57 L 58 L Pulse Rate [ Left From Monitor] Respiratory Rate Blood Pressure Blood Pressure [Right Arm] O2 Sat by Pulse 98 99 99 Oximetry 04/03/17 04/03/17 04/03/17 03:01 03:05 03:10 Temperature Pulse Rate 56 L 58 L 59 L Pulse Rate [ Left From Monitor] Respiratory Rate Blood Pressure 115/59 Blood Pressure [Right Arm] O2 Sat by Pulse 99 99 Oximetry 04/03/17 04/03/17 04/03/17 03:15 03:20 03:25 Temperature Pulse Rate 58 L 59 L 69 Pulse Rate [ Left From Monitor] Respiratory Rate Blood Pressure Blood Pressure [Right Arm] O2 Sat by Pulse 99 99 98 Oximetry 04/03/17 04/03/17 04/03/17 03:30 03:35 03:40 Temperature Pulse Rate 73 64 64 Pulse Rate [ Left From Monitor] Respiratory Rate Blood Pressure Blood Pressure [Right Arm] O2 Sat by Pulse 99 98 99 Oximetry 04/03/17 04/03/17 04/03/17 03:45 03:50 03:55 Temperature Pulse Rate 62 60 60 Pulse Rate [ Left From Monitor] Respiratory Rate Blood Pressure Blood Pressure [Right Arm] O2 Sat by Pulse 98 98 98 Oximetry 04/03/17 04/03/17 04/03/17 04:00 04:01 04:05 Temperature Pulse Rate 80 60 62 Pulse Rate [ Left From Monitor] Respiratory Rate Blood Pressure 105/69 Blood Pressure [Right Arm] O2 Sat by Pulse 98 99 Oximetry 04/03/17 04/03/17 04/03/17 04:10 04:15 04:20 Temperature Pulse Rate 61 65 59 L Pulse Rate [ Left From Monitor] Respiratory Rate Blood Pressure Blood Pressure [Right Arm] O2 Sat by Pulse 98 100 100 Oximetry 04/03/17 04/03/17 04/03/17 04:25 04:30 04:35 Temperature Pulse Rate 59 L 62 93 H Pulse Rate [ Left From Monitor] Respiratory Rate Blood Pressure Blood Pressure [Right Arm] O2 Sat by Pulse 100 100 65 L Oximetry 04/03/17 04/03/17 04/03/17 04:40 04:45 04:50 Temperature Pulse Rate 68 65 67 Pulse Rate [ Left From Monitor] Respiratory Rate Blood Pressure Blood Pressure [Right Arm] O2 Sat by Pulse 99 98 100 Oximetry 04/03/17 04/03/17 04/03/17 04:55 05:00 05:01 Temperature Pulse Rate 68 66 69 Pulse Rate [ Left From Monitor] Respiratory Rate Blood Pressure 120/72 Blood Pressure [Right Arm] O2 Sat by Pulse 100 100 Oximetry 04/03/17 04/03/17 04/03/17 05:05 05:10 05:15 Temperature Pulse Rate 69 68 69 Pulse Rate [ Left From Monitor] Respiratory Rate Blood Pressure Blood Pressure [Right Arm] O2 Sat by Pulse 100 98 98 Oximetry 04/03/17 04/03/17 04/03/17 05:20 05:25 05:30 Temperature Pulse Rate 65 71 69 Pulse Rate [ Left From Monitor] Respiratory Rate Blood Pressure Blood Pressure [Right Arm] O2 Sat by Pulse 98 97 98 Oximetry 04/03/17 04/03/17 04/03/17 05:35 05:40 05:43 Temperature Pulse Rate 71 77 77 Pulse Rate [ Left From Monitor] Respiratory Rate Blood Pressure Blood Pressure [Right Arm] O2 Sat by Pulse 97 97 94 Oximetry 04/03/17 04/03/17 04/03/17 05:45 05:50 05:55 Temperature Pulse Rate 77 73 75 Pulse Rate [ Left From Monitor] Respiratory Rate Blood Pressure Blood Pressure [Right Arm] O2 Sat by Pulse 99 98 98 Oximetry 04/03/17 04/03/17 04/03/17 06:00 06:01 06:05 Temperature Pulse Rate 74 71 64 Pulse Rate [ 71 Left From Monitor] Respiratory 18 Rate Blood Pressure 125/84 Blood Pressure 125/84 [Right Arm] O2 Sat by Pulse 97 98 Oximetry 04/03/17 04/03/17 04/03/17 06:10 06:15 06:20 Temperature Pulse Rate 64 64 63 Pulse Rate [ Left From Monitor] Respiratory Rate Blood Pressure Blood Pressure [Right Arm] O2 Sat by Pulse 98 98 99 Oximetry 04/03/17 04/03/17 04/03/17 06:25 06:30 06:35 Temperature Pulse Rate 64 63 63 Pulse Rate [ Left From Monitor] Respiratory Rate Blood Pressure Blood Pressure [Right Arm] O2 Sat by Pulse 98 98 98 Oximetry 04/03/17 04/03/17 04/03/17 06:40 06:45 06:50 Temperature Pulse Rate 61 59 L 62 Pulse Rate [ Left From Monitor] Respiratory Rate Blood Pressure Blood Pressure [Right Arm] O2 Sat by Pulse 97 97 98 Oximetry 04/03/17 04/03/17 04/03/17 06:55 07:00 07:01 Temperature Pulse Rate 59 L 58 L 58 L Pulse Rate [ Left From Monitor] Respiratory Rate Blood Pressure 121/64 Blood Pressure [Right Arm] O2 Sat by Pulse 98 98 Oximetry 04/03/17 04/03/17 04/03/17 07:05 07:08 07:10 Temperature 98.7 F Pulse Rate 82 75 Pulse Rate [ Left From Monitor] Respiratory 14 Rate Blood Pressure Blood Pressure [Right Arm] O2 Sat by Pulse 98 98 97 Oximetry 04/03/17 04/03/17 04/03/17 07:15 07:20 07:25 Temperature Pulse Rate 62 67 65 Pulse Rate [ Left From Monitor] Respiratory Rate Blood Pressure Blood Pressure [Right Arm] O2 Sat by Pulse 98 99 99 Oximetry 04/03/17 04/03/17 04/03/17 07:30 07:35 07:40 Temperature Pulse Rate 63 58 L 65 Pulse Rate [ Left From Monitor] Respiratory Rate Blood Pressure Blood Pressure [Right Arm] O2 Sat by Pulse 99 99 99 Oximetry 04/03/17 04/03/17 04/03/17 07:45 07:50 07:55 Temperature Pulse Rate 59 L 80 59 L Pulse Rate [ Left From Monitor] Respiratory Rate Blood Pressure Blood Pressure [Right Arm] O2 Sat by Pulse 98 98 99 Oximetry 04/03/17 04/03/17 04/03/17 08:00 08:01 08:05 Temperature Pulse Rate 64 58 L 59 L Pulse Rate [ Left From Monitor] Respiratory Rate Blood Pressure 113/65 Blood Pressure [Right Arm] O2 Sat by Pulse 98 99 Oximetry 04/03/17 04/03/17 04/03/17 08:10 08:15 08:20 Temperature Pulse Rate 60 62 71 Pulse Rate [ Left From Monitor] Respiratory Rate Blood Pressure Blood Pressure [Right Arm] O2 Sat by Pulse 98 98 99 Oximetry - Exam Breasts: deferred Cardiovascular: Regular rate Lungs: Clear to auscultation Abdomen: Present: soft (gravid ) Uterus: Present: firm (gravid ) FHR: category 2 Uterine Contraction Monitor Mode: External Uterine Contraction Pattern: Absent Uterine Tone Measurement Phase: Resting Uterine Contraction Intensity: Mild Extremities: normal (SCDs in place ) - Labs Labs: Abnormal Labs 03/31/17 04/02/17 20:28 12:45 RBC 5.45 H MCV 70 L MCH 23 L Meade % (Auto) 8.1 H Meade # 0.9 H Seg Neutrophils % 73.9 H Seg Neutrophils # 8.0 H Magnesium 6.00 H Laboratory Results - last 24 hr 04/02/17 12:45 Magnesium 6.00 H - Results US- obstetric: report reviewed
[2017-04-03] MEDS: PRENATAL VITAMIN PO SCH (09:37)
[2017-04-03] MEDS: COLACE PO SCH (09:38)
--- NOTE | 2017-04-03 16:09 | Consultation ---
History of Present Illness Reason for consult: other (Pt is 32 y.o 25.1 weeks With CHRISTIAN 07/16/17 G [id number] admitted on 03/31/17 with c/o contractions. Patient's Vaginal exam revealed her to be 1 cm dilated with 90% effacement. Patient followed by [facility] due to uterine and cervical fibroid . Consult requested on 04/03/17. Patient is S/P BMZ for FLM and MgSO4 for neuroprotection . Patient reports no active VB, no ABD pain , AFM and irregular contractions . ) Past History Past Medical History: no pertinent history Past Surgical History: no surgical history - Obstetrical History : 2 Medications and Allergies Allergies Allergy/AdvReac Type Severity Reaction Status Date / Time No Known Allergies Allergy Unverified 03/31/17 17:07 Home Medications Medication Instructions Recorded Confirmed Last Taken Type Acetaminophen/Codeine [Tylenol 1 tab PO Q6H PRN 04/03/17 04/03/17 03/31/17 10: 00 History /Codeine # 3 tab] Vit No.130/Iron/FA 1 each PO DAILY 04/03/17 04/03/17 03/31/17 10:00 History [ Tablet] Active Meds: Active Medications Betamethasone Acet/Betameth SodPhos (Celestone Soluspan) 12 mg IM Q24HR [facility] Last Admin: 04/01/17 20:56 Dose: 12 mg Butorphanol Tartrate (Stadol) 1 mg IV Q2H PRN PRN Reason: Labor Pain Docusate Sodium (Colace) 100 mg PO BID [facility] Last Admin: 04/03/17 09:38 Dose: 100 mg Magnesium Sulfate (Magnesium Sulfate 40gm/1000ml) 40 gm in 1,000 mls @ 50 mls/ hr IV DIRECT YAJAIRA PRN Reason: 2 GM/HR Last Admin: 04/01/17 16:02 Dose: 2 gm/hr, 50 mls/hr Lactated Ringer's (Lactated Ringers) 1,000 mls @ 75 mls/hr IV DIRECT [facility] Last Admin: 04/03/17 10:38 Dose: 125 mls/hr Multivitamins/Iron/Calcium ( Vitamin) 1 each PO QDAY [facility] Last Admin: 04/03/17 09:37 Dose: 1 each Zolpidem Tartrate (Ambien) 5 mg PO QHS PRN PRN Reason: Sleep Last Admin: 04/01/17 02:44 Dose: 5 mg Review of Systems Constitutional: no fever, no chills Eyes: deferred Ears, nose, mouth and throat: no headache Cardiovascular: no chest pain, no palpitations, no rapid/irregular heart beat, no edema, no syncope, no shortness of breath Respiratory: no cough Breasts: deferred Gastrointestinal: no diarrhea, no constipation Genitourinary: vaginal bleeding (spotting dark old blood ) Rectal Exam: deferred Musculoskeletal: no low back pain Integumentary: no rash Neurological: no syncope Psychiatric: no depression Endocrine: no excessive sweating Hematologic/Lymphatic: no easy bruising, no easy bleeding Allergic/Immunologic: no wheezing - Vital Signs Vital signs: Vital Signs Temp Pulse Resp BP 98.8 F 94 H 20 143/96 03/31/17 16:11 03/31/17 16:11 03/31/17 16:11 03/31/17 16:11 Temp Pulse Resp BP Pulse Ox 98.5 F 56 L 20 138/76 98 04/03/17 14:45 04/03/17 16:01 04/03/17 14:45 04/03/17 16:01 04/03/17 14:56 - Physical Exam Breasts: Positive: deferred Cardiovascular: Regular rate Lungs: Positive: Normal air movement Abdomen: Negative: tenderness, guarding Uterus: Positive: other (gravid ). Negative: tender Deep Tendon Reflex Grade: Normal +2 - Obstetrical FHR: other (+FHT and gross audible movement ) Uterine Contraction Pattern: Irregular (with uterine irritability) Results Result Diagrams: 03/31/17 20:28 All other labs normal. Ultrasound: report reviewed ([facility] U/S 03/31/17 IUP 23.5 weeks EFW 657 grams RADHA subjectively WNL, Breech presentation , cerivcal length suboptimal assessment , and Posterior uterine fibroid measured 7.6 cm , Placenta Posterior with No previa ) Assessment and Plan A. 1. IUP 25.1 weeks 2. Irregular contractions with uterine irritability 3. Uterine fibroid measured 7.6 cm 4. Previously appreciated cervical fibroid- [facility] U/S scan 03/20/17 5. S/P BMZ and MgSO4 6. Breech presentation 7. No active VB 8. No previa per [facility] scan P. 1. With no regular contractions, no active VB , or no change in VB -patient may be discharged with close supervision with your office and [facility].
[2017-04-03] MEDS: PROCARDIA*For Tocolysis only PO SCH (20:17)
[2017-04-03] MEDS: AMBIEN PO PRN (21:53)
[2017-04-04] MEDS: LACTATED RINGERS 1,000 ML IV SCH ×2 (04:42→11:07)
[2017-04-04] MEDS: PROCARDIA*For Tocolysis only PO SCH (08:13)
[2017-04-04] MEDS: COLACE PO SCH (10:25)
[2017-04-04] MEDS: PRENATAL VITAMIN PO SCH (10:25)
[2017-04-04 12:29] VITALS: BP 135/82
--- NOTE | 2017-04-04 12:31 | Progress Note ---
Assessment and Plan - Patient Problems (1) labor Current Visit: Yes Status: Acute Qualifiers: labor trimester: P labor delivery status: P Fetus number : F Plan to address problem: currently stable s/p mag and steroids send home on modified bedrest Subjective - Subjective Date of service: 04/04/17 Principal diagnosis: IUP at 25 wks, Labor, Uterine Fibroids Interval history: Patient without any significant complaints. Decreased contractions. Denies vaginal bleeding or LOF. Patient reports: movement normal, no loss of fluid, no vaginal bleeding, no contractions Objective - Vital Signs Vital Signs: Vital Signs - 12hr 04/04/17 04/04/17 04/04/17 01:01 02:01 02:52 Temperature Pulse Rate 50 L 49 L 54 L Pulse Rate [ Left From Monitor] Respiratory Rate Blood Pressure 118/75 140/89 Blood Pressure [Right Arm] O2 Sat by Pulse 99 Oximetry 04/04/17 04/04/17 04/04/17 02:57 03:02 03:07 Temperature Pulse Rate 53 L 53 L 52 L Pulse Rate [ Left From Monitor] Respiratory Rate Blood Pressure 136/81 Blood Pressure [Right Arm] O2 Sat by Pulse 98 98 97 Oximetry 04/04/17 04/04/17 04/04/17 03:11 03:12 03:17 Temperature Pulse Rate 55 L 60 Pulse Rate [ Left From Monitor] Respiratory Rate Blood Pressure Blood Pressure [Right Arm] O2 Sat by Pulse 58 L 98 98 Oximetry 04/04/17 04/04/17 04/04/17 03:22 03:27 03:32 Temperature Pulse Rate 52 L 53 L 53 L Pulse Rate [ Left From Monitor] Respiratory Rate Blood Pressure Blood Pressure [Right Arm] O2 Sat by Pulse 97 98 98 Oximetry 04/04/17 04/04/17 04/04/17 03:37 03:42 03:47 Temperature Pulse Rate 53 L 51 L 54 L Pulse Rate [ Left From Monitor] Respiratory Rate Blood Pressure Blood Pressure [Right Arm] O2 Sat by Pulse 98 97 98 Oximetry 04/04/17 04/04/17 04/04/17 03:52 03:57 04:02 Temperature Pulse Rate 52 L 50 L 56 L Pulse Rate [ Left From Monitor] Respiratory Rate Blood Pressure 132/68 Blood Pressure [Right Arm] O2 Sat by Pulse 98 98 98 Oximetry 04/04/17 04/04/1717 04:07 04:12 04:17 Temperature Pulse Rate 56 L 54 L 54 L Pulse Rate [ Left From Monitor] Respiratory Rate Blood Pressure Blood Pressure [Right Arm] O2 Sat by Pulse 99 98 98 Oximetry 04/04/17 04/04/17 04/04/17 04:22 04:27 04:32 Temperature Pulse Rate 54 L 65 58 L Pulse Rate [ Left From Monitor] Respiratory Rate Blood Pressure Blood Pressure [Right Arm] O2 Sat by Pulse 98 98 98 Oximetry 04/04/17 04/04/17 04/04/17 04:37 04:42 04:47 Temperature Pulse Rate 54 L 52 L 50 L Pulse Rate [ Left From Monitor] Respiratory Rate Blood Pressure Blood Pressure [Right Arm] O2 Sat by Pulse 96 96 96 Oximetry 04/04/17 04/04/17 04/04/17 04:52 04:57 05:01 Temperature Pulse Rate 50 L 52 L 49 L Pulse Rate [ Left From Monitor] Respiratory Rate Blood Pressure 120/61 Blood Pressure [Right Arm] O2 Sat by Pulse 96 96 Oximetry 04/04/17 04/04/17 04/04/17 05:02 05:07 05:12 Temperature Pulse Rate 51 L 50 L 54 L Pulse Rate [ Left From Monitor] Respiratory Rate Blood Pressure Blood Pressure [Right Arm] O2 Sat by Pulse 97 96 96 Oximetry 04/04/17 04/04/17 04/04/17 05:17 05:22 05:27 Temperature Pulse Rate 54 L 54 L 53 L Pulse Rate [ Left From Monitor] Respiratory Rate Blood Pressure Blood Pressure [Right Arm] O2 Sat by Pulse 96 97 98 Oximetry 04/04/17 04/04/17 04/04/17 05:32 05:37 05:42 Temperature Pulse Rate 52 L 51 L 53 L Pulse Rate [ Left From Monitor] Respiratory Rate Blood Pressure Blood Pressure [Right Arm] O2 Sat by Pulse 97 98 98 Oximetry 04/04/17 04/04/17 04/04/17 05:47 05:52 05:57 Temperature Pulse Rate 57 L 54 L 54 L Pulse Rate [ Left From Monitor] Respiratory Rate Blood Pressure Blood Pressure [Right Arm] O2 Sat by Pulse 98 98 98 Oximetry 04/04/17 04/04/17 04/04/17 06:01 06:02 06:07 Temperature Pulse Rate 50 L 52 L 52 L Pulse Rate [ Left From Monitor] Respiratory Rate Blood Pressure 151/89 Blood Pressure [Right Arm] O2 Sat by Pulse 99 98 Oximetry 04/04/17 04/04/17 04/04/17 06:12 06:17 06:22 Temperature Pulse Rate 54 L 51 L 52 L Pulse Rate [ Left From Monitor] Respiratory Rate Blood Pressure Blood Pressure [Right Arm] O2 Sat by Pulse 97 98 97 Oximetry 04/04/17 04/04/17 04/04/17 06:27 06:32 06:37 Temperature Pulse Rate 53 L 52 L 57 L Pulse Rate [ Left From Monitor] Respiratory Rate Blood Pressure Blood Pressure [Right Arm] O2 Sat by Pulse 99 98 98 Oximetry 04/04/17 04/04/17 04/04/17 06:42 06:47 06:52 Temperature Pulse Rate 50 L 52 L 52 L Pulse Rate [ Left From Monitor] Respiratory Rate Blood Pressure Blood Pressure [Right Arm] O2 Sat by Pulse 98 97 97 Oximetry 04/04/17 04/04/17 04/04/17 06:57 07:01 07:02 Temperature Pulse Rate 52 L 55 L 52 L Pulse Rate [ Left From Monitor] Respiratory Rate Blood Pressure 132/75 Blood Pressure [Right Arm] O2 Sat by Pulse 97 97 Oximetry 04/04/17 04/04/17 04/04/17 07:07 07:12 07:17 Temperature Pulse Rate 51 L 56 L 52 L Pulse Rate [ Left From Monitor] Respiratory Rate Blood Pressure Blood Pressure [Right Arm] O2 Sat by Pulse 97 97 97 Oximetry 04/04/17 04/04/17 04/04/17 07:20 07:22 07:27 Temperature Pulse Rate 54 L 53 L 52 L Pulse Rate [ Left From Monitor] Respiratory Rate Blood Pressure Blood Pressure [Right Arm] O2 Sat by Pulse 94 97 97 Oximetry 04/04/17 04/04/17 04/04/17 07:32 07:37 07:38 Temperature Pulse Rate 59 L 60 55 L Pulse Rate [ Left From Monitor] Respiratory Rate Blood Pressure 134/75 Blood Pressure [Right Arm] O2 Sat by Pulse 100 98 Oximetry 04/04/17 04/04/17 04/04/17 07:41 07:42 07:47 Temperature 98.6 F Pulse Rate 59 L 52 L Pulse Rate [ 55 L Left From Monitor] Respiratory 18 Rate Blood Pressure Blood Pressure 134/75 [Right Arm] O2 Sat by Pulse 96 98 99 Oximetry 04/04/17 04/04/17 04/04/17 07:52 07:57 08:01 Temperature Pulse Rate 54 L 60 55 L Pulse Rate [ Left From Monitor] Respiratory Rate Blood Pressure 133/77 Blood Pressure [Right Arm] O2 Sat by Pulse 97 98 Oximetry 04/04/17 04/04/17 04/04/17 08:02 08:06 08:08 Temperature Pulse Rate 57 L 59 L 61 Pulse Rate [ Left From Monitor] Respiratory Rate Blood Pressure Blood Pressure [Right Arm] O2 Sat by Pulse 98 68 L 99 Oximetry 04/04/17 04/04/17 04/04/17 08:12 08:13 12:20 Temperature 98.0 F Pulse Rate 60 59 L Pulse Rate [ Left From Monitor] Respiratory Rate Blood Pressure Blood Pressure 135/82 [Right Arm] O2 Sat by Pulse 91 100 Oximetry 04/04/17 12:25 Temperature Pulse Rate 82 Pulse Rate [ Left From Monitor] Respiratory Rate Blood Pressure 135/82 Blood Pressure [Right Arm] O2 Sat by Pulse Oximetry - Labs Labs: Abnormal Labs 03/31/17 04/02/17 20:28 12:45 RBC 5.45 H MCV 70 L MCH 23 L [place] % (Auto) 8.1 H [place] # 0.9 H Seg Neutrophils % 73.9 H Seg Neutrophils # 8.0 H Magnesium 6.00 H
--- NOTE | 2017-04-04 12:35 | Discharge Summary ---
Providers - Providers Date of Admission: 04/03/17 13:45 Date of discharge: 04/04/17 Attending physician: VISHNU RODRIGUES MD 03/31/17 19:44 Consult to Physician [CONS] Stat Consulting Provider: [facility] Reason For Exam: Advanced dilation at [address] consult to:: NICU Notified:: NICu charge nurse Phone number called:: [phone] Was contact made?: Yes If yes, spoke with:: Teresa Time called:: 09:00 04/03/17 07:29 Consult to Physician [CONS] Routine Consulting Provider: MAGDA ATWOOD Reason For Exam: IUP at 24 wks, labor, uterine fibroids Place consult to:: Office Notified:: Allison Phone number called:: [phone] Was contact made?: Yes If yes, spoke with:: Allison Time called:: 08:45 Primary care physician: VISHNU RODRIGUES MD Hospitalization Reason for admission: labor Procedure: other (received magnesium tocolysis and steroids) Discharge diagnosis: other ( labor and fibroids) Hospital course: Patient admitted after experiencing uterine contractions. Patient received magnesium and steroids. No further cervical change. patient discharged on modified bedrest Condition at discharge: Good Disposition: DISCHARGED TO HOME OR SELFCARE - Discharge Diagnoses (1) labor Status: Acute Qualifiers: labor trimester: P labor delivery status: P Fetus number : F Plan - Provider Discharge Summary Activity: no sex for 6 weeks, no heavy lifting 4 weeks Additional instructions: [] Smoking cessation referral if applicable(refer to patient education folder for contact #) [] Refer to [facility] Booklet Call your doctor immediately for: * Fever > 100.5 * Heavy vaginal bleeding ( >1 pad per hour) * Severe persistent headache * Shortness of breath * Reddened, hot, painful area to leg or breast * followup in one week - Follow up plan
== END 2017-04-04 13:53 | disposition home or self-care (01) | DRG 778 ==
LOC: TRG 16:04 → LD 21:31 → OBSVTOIN 04-03 13:45
PROVIDERS: ADMIT Obstetrics & Gynecology; ATTEND Obstetrics & Gynecology
DX: O60.02 Preterm labor without delivery, second trimester (principal); O34.12 Maternal care for benign tumor of corpus uteri, second trimester; O62.9 Abnormality of forces of labor, unspecified; O32.1XX0 Maternal care for breech presentation, not applicable or unspecified; Z3A.24 24 weeks gestation of pregnancy
CPT/HCPCS: 36415; 76805; 81001; 83735; 85025; 86592; 86706; 86762; 86850; 86900; 86901; 87806; G0378; J0702; J3105; J3475; J7120

== ENCOUNTER 2019-01-09 07:27 | Inpatient (IN) | payer OTHER ==
[2019-01-04 10:52] LABS: Basophils % (Auto) 0.7 % (0.0-1.8); Eosinophils # (Auto) 0.2 K/mm3 (0.0-0.4); Eosinophils % (Auto) 3.6 % (0.0-4.3); Hematocrit 38.6 % (30.3-42.9); Hemoglobin 12.3 gm/dl (10.1-14.3); Lymphocytes # (Auto) 1.8 K/mm3 (1.2-5.4); Lymphocytes % (Auto) 40.2 % (13.4-35.0); Mean Corpuscular HGB Conc 32 % (30-34); Mean Corpuscular Volume 69 fl (79-97); Monocytes # (Auto) 0.3 K/mm3 (0.0-0.8); Monocytes % (Auto) 6.3 % (0.0-7.3); Platelet Count 230 K/mm3 (140-440); Red Blood Count 5.61 M/mm3 (3.65-5.03); Red Cell Distribution Width 15.3 % (13.2-15.2)
--- NOTE | 2019-01-04 10:55 | Anesthesia Consultation ---
Anesthesia Consult and Med Hx Date of service: 01/09/19 - Airway Anesthetic Teeth Evaluation: Good ROM Head & Neck: Adequate Mental/Hyoid Distance: Adequate Mallampati Class: Class II Intubation Access Assessment: Good - Pre-Operative Health Status ASA Pre-Surgery Classification: ASA1 Proposed Anesthetic Plan: General (q) Nerve Block: TAP - Pulmonary Hx Asthma: No COPD: No Hx Pneumonia: No - Cardiovascular System Hx Hypertension: No - Central Nervous System Hx Seizures: No Hx Psychiatric Problems: No - Endocrine Hx Renal Disease: No Hx End Stage Renal Disease: No Hx Hypothyroidism: No Hx Hyperthyroidism: No - Hematic Hx Anemia: No Hx Sickle Cell Disease: No - Other Systems Hx Alcohol Use: No Hx Cancer: No
[~2019-01-09 07:27] MED LIST: LACTATED RINGERS 1,000 ML IV SCH; NACL BACTERIOSTATIC INFILTRATI ONE; NEURONTIN PO NR; SUBLIMAZE IV NR; TYLENOL PO NR; VERSED IV NR
[2019-01-09] MEDS ORDERED: SUBLIMAZE ONE (07:39)
[2019-01-09] MEDS ORDERED: DIPRIVAN 10 MG/ML IV ONE (07:40)
[2019-01-09] MEDS ORDERED: XYLOCAINE MPF 2% ONE (07:45)
--- NOTE | 2019-01-09 07:45 | History and Physical Report ---
History of Present Illness Date of examination: 01/09/19 Date of admission: 01/09/19 07:27 Chief complaint: Symptomatic uterine fibroids History of present illness: 33-year-old with a history of uterine fibroids. The patient complains of heavy painful menses every month. She reports passage of clots and significant pelvic discomfort during her menstrual cycle. Pelvic ultrasound was performed that demonstrated evidence of an enlarged uterus with a fundal leiomyoma measuring 9.8 cm and a posterior leiomyoma measuring 6.3 cm. The patient has desire for fertility in the future. Past History Past Medical History: other (leiomyoma) Past Surgical History: section Social history: - Obstetrical History : 2 Para: 1 Hx # Term Pregnancies: 0 Number of Pregnancies: 1 Spontaneous Abortions: 1 Induced : 0 Number of Living Children: 1 Medications and Allergies Allergies Allergy/AdvReac Type Severity Reaction Status Date / Time No Known Allergies Allergy Unverified 01/02/19 16:44 Home Medications Medication Instructions Recorded Confirmed Last Taken Type No Known Home Medications [No 01/02/19 01/02/19 Unknown History Reported Home Medications] Active Meds: Active Medications Acetaminophen (Tylenol) 650 mg PO PREOP NR Stop: 01/09/19 23:59 Celecoxib (Celebrex) 200 mg PO PREOP NR Stop: 01/09/19 23:59 Fentanyl (Sublimaze) 100 mcg IV ONCE NR Stop: 01/09/19 23:59 Gabapentin (Neurontin) 300 mg PO PREOP NR Stop: 01/09/19 23:59 Lactated Ringer's (Lactated Ringers) 1,000 mls @ 125 mls/hr IV DIRECT YAJAIRA Cefazolin Sodium (Ancef/Sterile Water 2 Gm/20 Ml) 2 gm in 20 mls @ 80 mls/hr IV PREOP YAJAIRA; Protocol Midazolam HCl (Versed) 2 mg IV PREOP NR Stop: 01/09/19 23:59 Review of Systems All systems: negative Genitourinary: vaginal bleeding, pelvic pain - Vital Signs Vital signs: Vital Signs Temp Pulse Resp BP Pulse Ox 98.7 F 72 18 124/84 100 01/04/19 10:30 01/04/19 10:30 01/04/19 10:30 01/04/19 10:30 01/04/19 10:30 Temp Pulse Resp BP Pulse Ox 98.7 F 72 18 124/84 100 01/04/19 10:30 01/04/19 10:30 01/04/19 10:30 01/04/19 10:30 01/04/19 10:30 - Physical Exam Breasts: Positive: deferred Cardiovascular: Regular rate Lungs: Positive: Clear to auscultation Abdomen: Positive: normal appearance Results Result Diagrams: 01/04/19 10:40 All other labs normal. Assessment and Plan - Patient Problems (1) Leiomyoma Current Visit: Yes Status: Acute Plan to address problem: The patient is scheduled for an exploratory laparotomy and myomectomy (2) Menorrhagia Current Visit: Yes Status: Acute (3) Dysmenorrhea Current Visit: Yes Status: Acute
[2019-01-09] MEDS ORDERED: QUELICIN ONE (07:46)
[2019-01-09] MEDS ORDERED: ANCEF/STERILE WATER 2 GM/20 ML 2 GM/20 ML SYRINGE IV NR (08:00)
[2019-01-09] MEDS ORDERED: ACD-A 500 ML IV ONE (08:49)
[2019-01-09] MEDS ORDERED: NACL 0.9% 100 ML ONE (08:49)
[2019-01-09] MEDS ORDERED: Vasostrict ONE (08:50)
[2019-01-09] MEDS ORDERED: Vasostrict IM ONE (10:26)
[2019-01-09] MEDS ORDERED: NACL 0.9% IV ONE (10:27)
[2019-01-09] MEDS ORDERED: NACL 0.9% IR ONE ×2 (10:27)
[2019-01-09] MEDS ORDERED: ZOFRAN ONE (10:35)
[2019-01-09] MEDS ORDERED: DECADRON ONE (10:35)
[2019-01-09] MEDS ORDERED: ROBINUL ONE (10:49)
[2019-01-09] MEDS ORDERED: MARCAINE 0.25% INFILTRATI ONE (11:18)
[2019-01-09] MEDS ORDERED: NARCAN 0.4 MG/1 ML IV PRN (11:19)
[2019-01-09] MEDS ORDERED: AMBIEN PO PRN (11:20)
[2019-01-09] MEDS ORDERED: TYLENOL PO PRN (11:20)
[2019-01-09] MEDS ORDERED: MILK OF MAGNESIA PO PRN (11:20)
[2019-01-09] MEDS ORDERED: ZOFRAN IV PRN (11:20)
--- NOTE | 2019-01-09 11:29 | Operative Report ---
Operative Report Operative Report: Date of procedure: 01/09/2019 Pre-operative diagnosis: Symptomatic uterine fibroids; menorrhagia; dysmenorrhea Post-operative diagnosis: Same as above Procedure name(s): Laboratory laparotomy; myomectomy; lysis of adhesions Surgeon: Blanca David M.D. Coil Winder: Yuly Moran Anesthesia: Gen. endotracheal anesthesia EBL: 300 mL Cell saver replacement: 125 mL Findings Enlarged probable uterus. 6 leiomyomas were removed Pathology: Leiomyomas Procedure The patient was taken to the operating room and given general endotracheal anesthesia without complication. The patient was prepped and draped in a normal sterile fashion. A Pfannenstiel skin incision was made down to layer of fascia which was nicked in the midline and extended laterally with the Bovie cautery the superior aspect of the rectus fascia was grasped with Keegan clamps 2 and the rectus muscles off sharply. This was to perform an inferior fashion as well. The rectus muscle in the midline and peritoneum entered bluntly. There was evidence of adhesions of the anterior surface of the uterus to the rectus fascia. Blunt and sharp dissection was performed in order to lyse the adhesions. The uterus was elevated through the incision. The leiomyomas within injected with diluted Pitressin. The most prominent leiomyoma was a fundal mass. An incision was made with the Bovie cautery through the serosa. The leiomyoma was then grasped with a thyroid Edna clamp. Sharp and blunt dissection was was performed in order to excise the leiomyoma. An additional leiomyoma was removed through the same incision. There was evidence that the endometrium was compromised with removal of the largest leiomyoma. The myometrium was then reapproximated with 0 Vicryl in a running locked fashion. Multiple layers were closed of the myometrium in order to reapproximate the surgical site. The serosa was then reapproximated in a running locked fashion. A total of 6 leiomyomas were removed in a similar fashion. The myometrium was repaired in the same similar fashion with all of the removals. Copious irrig ation of the pelvis was performed. Interceed was placed over the surgical sites. The peritoneum was then reapproximated with 3-0 Vicryl in a running fashion. The fascia was then closed with 0 Vicryl in a running fashion. The skin was then reapproximated with 3-0 Monocryl. Steri-Strips are placed across the incision. A pressure dressing was applied to the incision. Sponge laps and needle counts were correct 2. The patient was successfully extubated and taken to the recovery room in stable condition.
[2019-01-09] MEDS ORDERED: MORPHINE PCA 30MG/30ML IV SCH (12:00)
[2019-01-09] MEDS: TORADOL IV SCH ×2 (12:00→19:19)
[2019-01-09] MEDS: SUBLIMAZE IV PRN ×2 (12:22→12:39)
--- NOTE | 2019-01-09 12:59 | Post Anesthesia Evaluation ---
- Post Anesthesia Evaluation Patient Participated: Yes Airway Patent: Yes Stable Respiratory Function: Yes Nausea/Vomiting: No Temp > 96.8F: Yes Pain Manageable: Yes Adequeate Hydration: Yes Anesthesia Complications: No Block Receding Appropriately: No (For post-op pain) Patient on Ventilator: No
--- NOTE | 2019-01-09 12:59 | Anesthesia Day of Surgery ---
Anesthesia Day of Surgery - Day of Surgery Patient Examined: Yes Patient H&P Reviewed: Yes Patient is NPO: Yes
[2019-01-09] MEDS: D5LR 1,000 ML IV SCH (15:00)
[2019-01-09] MEDS ORDERED: D5LR 1,000 ML IV ONE (15:03)
[2019-01-09] MEDS: PERCOCET 5/325 PO PRN ×2 (19:20→23:46)
[2019-01-10 06:11] LABS: Hematocrit 23.2 % (30.3-42.9); Hemoglobin 7.5 gm/dl (10.1-14.3)
[2019-01-10] MEDS: PERCOCET 5/325 PO PRN ×3 (06:22→18:02)
[2019-01-10] MEDS ORDERED: NACL 0.9% 1000 ML 1,000 ML IV ONE (06:42)
--- NOTE | 2019-01-10 07:40 | Progress Note ---
Assessment and Plan - Patient Problems (1) Leiomyoma Current Visit: Yes Status: Acute Plan to address problem: discussed the possible need for transfusion if symptoms worsen (2) Menorrhagia Current Visit: Yes Status: Acute (3) Dysmenorrhea Current Visit: Yes Status: Acute Subjective - Subjective Date of service: 01/10/19 Interval history: Patient reports some mild lightheadedness with initial ambulation. Had significa nt change in H/H. Pulse remains normal. Patient receiving IV bolus. Will continue to monitor symptoms Patient reports: dizzy ambulation Objective - Vital Signs Latest vital signs: Vital Signs Temp Pulse Resp BP BP Pulse Ox 01/10/19 06:22 18 01/10/19 06:08 99.1 F 78 20 94/48 98 01/10/19 00:52 99.3 F 80 18 92/54 99 01/09/19 23:46 18 01/09/19 20:36 99.6 F 79 18 111/63 100 01/09/19 19:20 18 01/09/19 19:19 18 01/09/19 15:55 97.7 F 61 16 99/64 100 01/09/19 14:30 98.0 F 76 14 111/61 99 01/09/19 13:16 98.3 F 60 15 112/69 99 01/09/19 13:00 97.5 F L 63 14 128/74 100 01/09/19 12:39 15 01/09/19 12:22 14 01/09/19 12:15 62 11 L 100 01/09/19 12:00 70 16 117/79 100 01/09/19 11:55 70 16 117/78 100 01/09/19 11:50 97.4 F L 72 14 124/78 100 01/09/19 09:20 20 01/09/19 08:20 20 01/09/19 07:45 98.5 F 73 22 122/85 100 Intake and Output 01/09/19 01/10/19 01/10/19 22:59 06:59 14:59 Intake Total 120 Output Total 225 Balance -105 Intake: Oral 120 Output: Urine 225 Indwelling Catheter 225 Other: Total, Intake Amount 120 Total, Output Amount 225 Voiding Method Indwelling Catheter - Exam Abdomen: Present: soft Incision: Present: dressed - Labs Labs: Abnormal lab results 02/21/19 Range/Units 05:45 Hgb 7.5 L (10.1-14.3) gm/dl Hct 23.2 L (30.3-42.9) %
[2019-01-10] MEDS: ANCEF/NS 1 GM/50 ML 1 GM/50 ML BAG IV SCH ×2 (10:49→18:00)
[2019-01-10] MEDS: IBUPROFEN PO PRN ×2 (10:56→18:03)
[2019-01-11] MEDS: TORADOL IV SCH ×3 (00:21→12:18)
[2019-01-11] MEDS: PERCOCET 5/325 PO PRN ×3 (00:22→12:20)
[2019-01-11] MEDS: D5LR 1,000 ML IV SCH (02:15)
[2019-01-11] MEDS: ANCEF/NS 1 GM/50 ML 1 GM/50 ML BAG IV SCH ×2 (02:20→10:07)
--- NOTE | 2019-01-11 08:58 | Progress Note ---
Assessment and Plan A/P POD 1 s/p myomectomy acute anemia 12-7.5 resolved tachy consider d/c home today iron tid f/u in 4 weeks Subjective - Subjective Date of service: 01/11/19 (T) Principal diagnosis: s/p myomectomy Patient reports: appetite normal, voiding normally, pain well controlled, flatus, ambulating normally Objective - Vital Signs Latest vital signs: Vital Signs Temp Pulse Resp Resp BP BP Pulse Ox 01/11/19 06:28 20 01/11/19 06:26 20 01/11/19 04:30 98.6 F 96 H 20 118/68 01/11/19 00:22 22 01/11/19 00:21 22 01/11/19 00:00 98.0 F 91 H 18 106/63 01/10/19 23:00 22 01/10/19 20:05 99.6 F 102 H 20 112/60 100 01/10/19 18:03 18 01/10/19 18:02 18 01/10/19 11:52 98.9 F 89 18 92/50 100 01/10/19 10:56 20 01/10/19 10:55 20 Intake and Output 01/10/19 01/11/19 01/11/19 23:59 07:59 15:59 Intake Total 170 130 Balance 170 130 Intake: IV 50 10 ANCEF/NS 1 GM/50 ML 1 gm 50 In 50 ml @ 100 mls/hr IV Q8H [facility] Rx#:[id number] Left Hand 10 Oral 120 120 Other: Total, Intake Amount 120 120 # Voids Indwelling Catheter 1 1 - Exam Breasts: Present: normal Cardiovascular: Present: Regular rate, Normal S1 Lungs: Present: Clear to auscultation, Normal air movement Abdomen: Present: normal appearance, soft, normal bowel sounds. Absent: distention, tenderness, guarding Vulva: both: normal Uterus: Present: normal, firm. Absent: bogginess, tenderness Extremities: Present: normal Deep Tendon Reflex Grade: Normal +2 Incision: Present: normal, dry, intact
--- NOTE | 2019-01-11 09:02 | Discharge Summary ---
Providers - Providers Date of Admission: 01/09/19 07:27 Date of discharge: 01/11/19 Attending physician: TOYIN MARTINES Primary care physician: DONNA BUCK MD Hospitalization Reason for admission: other Procedure: other (open myomectomy ) Incision: normal, dry, intact Hospital course: patient admitted for scheduled myomectomy. patient had some acute anemia postop HGb 12-7.5. asymtpomatic. d/c home with f/u in 4 weeks Condition at discharge: Good Disposition: DC-01 TO HOME OR SELFCARE Plan - Discharge Medications Prescriptions: Docusate Sodium [Colace] 100 mg PO BID PRN #60 capsule PRN Reason: Constipation Ferrous Sulfate [Feosol 325 MG tab] 325 mg PO BID #60 tablet Ibuprofen [Motrin] 800 mg PO Q8HR PRN #60 tablet PRN Reason: pain oxyCODONE /ACETAMINOPHEN [Percocet 5/325] 1 tab PO Q6HR PRN #30 tablet PRN Reason: Pain - Provider Discharge Summary Activity: routine, no sex for 6 weeks, no strenuous exercise Diet: routine Instructions: routine Additional instructions: [] Smoking cessation referral if applicable(refer to patient education folder for contact #) [] Refer to [facility]'s [facility] Booklet Call your doctor immediately for: * Fever > 100.5 * Heavy vaginal bleeding ( >1 pad per hour) * Severe persistent headache * Shortness of breath * Reddened, hot, painful area to leg or breast * Drainage or odor from incision. * Keep incision clean and dry at all times and follow doctor's instructions regarding bathing/showering - Follow up plan Follow up: DONNA BUCK MD [Primary Care Provider] - 02/07/19
[2019-01-11 12:34] VITALS: BP 132/93
[2019-01-11 13:36] LABS: Basophils % (Auto) 0.3 % (0.0-1.8); Eosinophils # (Auto) 0.3 K/mm3 (0.0-0.4); Eosinophils % (Auto) 4.1 % (0.0-4.3); Hematocrit 24.4 % (30.3-42.9); Hemoglobin 7.8 gm/dl (10.1-14.3); Lymphocytes # (Auto) 1.8 K/mm3 (1.2-5.4); Lymphocytes % (Auto) 25.3 % (13.4-35.0); Mean Corpuscular HGB Conc 32 % (30-34); Monocytes # (Auto) 0.4 K/mm3 (0.0-0.8); Monocytes % (Auto) 5.6 % (0.0-7.3); Platelet Count 177 K/mm3 (140-440); Red Blood Count 3.59 M/mm3 (3.65-5.03); Red Cell Distribution Width 15.5 % (13.2-15.2)
[2019-01-11 13:43] LABS: Mean Corpuscular Volume 68 fl (79-97)
== END 2019-01-11 13:30 | disposition home or self-care (01) | DRG 743 ==
LOC: 3A 07:27 → OB 11:27
PROVIDERS: ADMIT Obstetrics & Gynecology; ATTEND Obstetrics & Gynecology
PROC: 0UB90ZZ Excision of Uterus, Open Approach (ICD-10-PCS; principal; 2019-01-09)
DX: D25.9 Leiomyoma of uterus, unspecified (principal); D64.9 Anemia, unspecified; N92.0 Excessive and frequent menstruation with regular cycle; N94.6 Dysmenorrhea, unspecified
CPT/HCPCS: 36415; 84703; 85014; 85018; 85025; 86850; 86900; 86901; 88305; G0378; A4217; C1765; J0330; J0690; J1100; J1885; J2250; J2270; J2405; J2704; J3010; J7030; J7120; J7121